=== PATIENT | male | born 1990 | race Caucasian/White ===

== ENCOUNTER 2016-11-11 07:06 | Day surgery (SDC) | payer OTHER ==
[~2016-11-11] VITALS: Ht 175.3 cm; Wt 103.0 kg
[~2016-11-11 07:06] MED LIST: NO MEDICATIONS; Sodium Chloride LOK Flush 10 mL Syringe IV PRN; fentaNYL-PF 50 mCg/mL 2 mL Inj IVPUSH PRN
[2016-11-11] MEDS ORDERED: fentaNYL-PF 50 mCg/mL 2 mL Inj IVPUSH ONE (07:07)
[2016-11-11 07:25] VITALS: BP 144/94; PULSE 98; RESP 16; O2SAT 98
[2016-11-11] MEDS ORDERED: 0.9% Sodium Chloride 1,000 ML IV ONE (07:46)
[2016-11-11 08:11] VITALS: BP 127/82; PULSE 78; RESP 16; O2SAT 95
[2016-11-11 08:21] VITALS: BP 132/79; PULSE 76; RESP 16; O2SAT 95
[2016-11-11 08:25] VITALS: BP 132/77; PULSE 80; RESP 16; O2SAT 96
--- NOTE | 2016-11-11 08:36 | ENDO ---
[address] [address] ENDOSCOPY PROCEDURE PATIENT: PAIGE NOEL : 1990 MR#: [id number] ADMIT: 11/11/2016 JOB ID: [id number] DATE OF SERVICE: 11/11/2016 TITLE OF OPERATIONS: 1. Colonoscopy. 2. Biopsy. PREOPERATIVE DIAGNOSIS(ES): Diarrhea. POSTOPERATIVE DIAGNOSIS(ES): 1. A 2 mm sigmoid polyp, removed by cold biopsy forceps. 2. Otherwise, normal colonoscopy. ANESTHESIA: 1. Fentanyl 100 mcg. 2. Versed 4 mg IV administered. COMPLICATION: None. BLOOD LOSS: Minimal. DESCRIPTION OF PROCEDURE: After risks and benefits explained to the patient, informed consent was obtained. After anesthesia administered, colonoscope was inserted from the rectum to the terminal ileum and mucosa carefully examined. Prep of the patient was excellent. After the procedure was done, the scope was withdrawn and the procedure terminated. FINDINGS: Upon inspection of the anus, no masses, hemorrhoids, ulcers, fissures that were seen. Throughout the entire examination, there was a 2 mm sigmoid polyp, removed by cold biopsy forceps. Random biopsies taken from the terminal ileum and random colon. Retroflexion was normal. IMPRESSION: A 2 mm sigmoid polyp, removed by cold biopsy forceps. RECOMMENDATION: Await pathology results. If tubular adenoma, then repeat colonoscopy in five years. Follow up in GI clinic as needed.
--- NOTE | 2016-11-14 14:27 | PATH ---
SURGICAL PATHOLOGY Attending Physician:Fitz Cowart MD CASE STATUS: Signed Out PATIENT NAME: PAIGE NOEL JR PID: [id number] : 1990 DATE COLLECTED:11/11/2016 16:24 SPECIMEN: 1: Small Intestine/Bowel, Biopsy 2: Colon, Biopsy 3: Colon, Biopsy CLINICAL HISTORY: 1. TERMINAL ILEUM BXS 2 RANDOM COLON BXS 3. SIGMOID COLON POLYP FINAL DIAGNOSIS: 1.TERMINAL ILEUM BIOPSIES: FRAGMENTS OF NORMAL-APPEARING TERMINAL ILEUM MUCOSA. Negative for granulomas. Negative for significant inflammation, dysplasia and malignancy. 2.RANDOM COLON BIOPSIES: FRAGMENTS OF NORMAL-APPEARING COLON MUCOSA. Negative for significant architectural distortion. Negative for significant inflammation, dysplasia and malignancy. 3.SIGMOID COLON POLYP: TUBULAR ADENOMA. ICD10 D12.5 GROSS DESCRIPTION: The specimen is received in three formalin filled containers labeled with the patient's name. 1). The specimen is sublabeled "terminal ileum" and consists of 2 portions of tissue which aggregate to 0.3 x 0.3 x 0.2 CM. The specimen is entirely submitted in cassettes 1A. 2). The specimen is sublabeled "random colon" and consists of 5 portions of tissue which aggregate to 0.7 x 0.6 x 0.3 CM. The specimen is totally submitted in cassette 2A. 3). The specimen is sublabeled "sigmoid colon polyp" and consists of a 0.3 x 0.2 x 0.2 CM portion of tissue which is entirely submitted in cassette 3A. 11/11/2016 DAC MICRO DESCRIPTION: See diagnosis. ICD-9 CODES: CPT CODES: 1: 86722 2: 75066 3: 09241 Electronically Signed Out Pedro Sher MD [facility] [address], [place] [address] Technical component performed at [facility], [facility] [address], [place], [address]
== END 2016-11-11 23:59 | disposition home or self-care (01) ==
LOC: END 07:06
PROVIDERS: ATTEND Internal Medicine Gastroenterology
DX: D12.5 Benign neoplasm of sigmoid colon (principal); R19.7 Diarrhea, unspecified
CPT/HCPCS: 45380; 88305; 99152; J2250; J3010; J7030